=== PATIENT | male | born 1985 | race Caucasian/White ===

== ENCOUNTER 2021-10-23 22:43 | Inpatient (IN) | payer OTHER ==
[~2021-10-23] VITALS: Ht 188 cm; Wt 108.4 kg
[2021-10-23 23:54] LABS: HEMOGLOBIN 14.4 gm/dl (14.0-17.5); RED BLOOD COUNT 4.76 M/UL (4.20-5.50); WHITE BLOOD COUNT 17.9 K/UL (4.5-11.0)
[2021-10-24 00:17] LABS: BUN/CREATININE RATIO 14 (0-10)
[2021-10-24] MEDS ORDERED: HYDROCODON-ACE1 EAC2 PO (14:51)
[2021-10-24] MEDS ORDERED: IBU800 MG PO (16:35)
[2021-10-25 08:16] LABS: HEMOGLOBIN 12.4 gm/dl (14.0-17.5); RED BLOOD COUNT 4.19 M/UL (4.20-5.50)
[2021-10-25 08:39] LABS: BUN/CREATININE RATIO 15 (0-10)
[2021-10-25] MEDS ORDERED: LOVENOX40 MG/0.4 SQ (16:20)
== END 2021-10-25 17:57 | disposition home or self-care (01) | DRG 494 ==
LOC: ER1 22:43 → CDU 10-24 01:17 → MED SURG 4 10-24 16:57
PROVIDERS: Emergency Medicine; Internal Medicine; Orthopaedic Surgery; ADMIT Internal Medicine Infectious Disease
PROC: 0QSG06Z Reposition Right Tibia with Intramedullary Internal Fixation Device, Open Approach (ICD-10-PCS; principal; 2021-10-24 15:15)
DX: S82.251A Displaced comminuted fracture of shaft of right tibia, initial encounter for closed fracture (principal); S82.451A Displaced comminuted fracture of shaft of right fibula, initial encounter for closed fracture; D72.829 Elevated white blood cell count, unspecified; F17.210 Nicotine dependence, cigarettes, uncomplicated; Z20.822 Contact with and (suspected) exposure to COVID-19; S00.81XA Abrasion of other part of head, initial encounter; V59.9XXA Occupant (driver) (passenger) of pick-up truck or van injured in unspecified traffic accident, initial encounter; Y92.410 Unspecified street and highway as the place of occurrence of the external cause; Y93.89 Activity, other specified; Z83.3 Family history of diabetes mellitus; Z82.49 Family history of ischemic heart disease and other diseases of the circulatory system
CPT/HCPCS: 36415; 70450; 71045; 72125; 72170; 73552; 73560; 73590; 73600; 76000; 80048; 80053; 85025; 85610; 86850; 86900; 86901; 96374; 96375; 97116; 97161; 99285; C1713; J0690; J1100; J1170; J1650; J1885; J2001; J2250; J2270; J2405; J2704; J2795; J3010; J7120; U0002